=== PATIENT | male | born 1965 | race Caucasian/White ===

== ENCOUNTER → 2019-09-08 | Outpatient (CLI) | payer BC ==
--- NOTE | 2019-09-08 10:53 | US ---
EXAMINATION TYPE: US scrotum with doppler. Grayscale and color Doppler Duplex imaging performed of t he scrotum. DATE OF EXAM: 09/08/2019 COMPARISON: NONE CLINICAL HISTORY: left tessular pain N50.812. Left teste discomfort. No injury. EXAM MEASUREMENTS: TESTICLES: Right Testicle: 5.0 x 3.8 x 3.1 cm Left Testicle: 5.1 x 3.8 x 2.7 cm EPIDIDYMIS HEAD: Right Epididymis: 1.3 x 0.8 x 0.7 cm Left Epididymis: 1.1 x 1.0 x 0.8 cm Doppler performed to assess for testicular vascularity; good bilateral color flow and waveforms are s een. There is no evidence of testicular torsion. Presence of hydroceles: no Presence of varicoceles: Possible right varicocele on color images IMPRESSION: No sonographic evidence of testicular torsion or epididymoorchitis. No hydrocele seen. No suspicious masses. There is questionable presence of a right-sided varicocele. In the setting of rig ht-sided varicoceles CT abdomen pelvis could be considered to ensure no upstream obstructing mass or adenopathy.
== END | disposition home or self-care (01) ==
LOC: RADUSWWP 10:12
PROVIDERS: ATTEND Family Medicine
DX: N50.812 Left testicular pain (principal)
CPT/HCPCS: 76870; 93975